=== PATIENT | male | born 1990 | race African-American/Black ===

== ENCOUNTER 2020-10-29 19:00 | Emergency (ER) | payer OTHER ==
[~2020-10-29] VITALS: Ht 182.9 cm; Wt 84.0 kg
[2020-10-29] MEDS ORDERED: GENTAMICIN PER PHARMACY. MC PRN (19:15)
[2020-10-29] MEDS ORDERED: IV NORMAL SALINE 1000ML BAG 1,000 ML IV ONE (19:15)
[2020-10-29] MEDS ORDERED: HYDROmorphone 2 MG/ML VIAL IVP ONE ×2 (19:15→22:00)
[2020-10-29] MEDS ORDERED: HYDROmorphone 2 MG/ML VIAL ONE (19:24)
[2020-10-29 19:29] LABS: BASO # 0.1 x10^3/uL (0.0-0.2); BASO % 1 % (0-3); EOS # 0.3 x10^3/uL (0.0-0.7); EOS % 3 % (0-3); HEMATOCRIT 42.7 % (39.0-53.0); LYMPH # 3.6 x10^3/uL (1.0-4.8); LYMPH % 36 % (24-48); MEAN CORPUSCULAR HEMOGLOBIN 28 pg (25-35); MEAN CORPUSCULAR HGB CONC 33 g/dL (31-37); MEAN CORPUSCULAR VOLUME 86 fL (79-100); MONO # 0.9 x10^3/uL (0.0-1.1); MONO % 9 % (0-9); NEUT # 5.3 x10^3/uL (1.8-7.7); NEUT % 52 % (31-73); PLATELET COUNT 318 x10^3/uL (140-400); RED BLOOD COUNT 4.96 x10^6/uL (4.30-5.70); RED CELL DISTRIBUTION WIDTH 14.6 % (11.5-14.5)
[2020-10-29 19:40] LABS: PROTHROMBIN TIME PATIENT 12.6 SEC (11.7-14.0)
[2020-10-29 19:44] LABS: CALCIUM 9.3 mg/dL (8.5-10.1); CREATININE 1.2 mg/dL (0.7-1.3); GFR 84.9; POTASSIUM 3.5 mmol/L (3.5-5.1)
[2020-10-29] MEDS ORDERED: DEXTROSE 5% IV SCH (20:00)
[2020-10-29] MEDS ORDERED: GENTAMICIN SULFATE IV SCH (20:00)
--- NOTE | 2020-10-29 20:09 | RAD ---
XR FOOT_RIGHT 3 VIEWS Clinical indications: toe amputation Findings: There is amputation of the second digit at the level of the distal metaphysis of the secon d proximal phalanx. There is amputation of the third digit at the level of the distal epiphysis of th e third proximal phalanx. There is a fracture of the distal metaphysis of the third proximal phalanx. There is partial truncation of the tuft of the fourth distal phalanx which may be due to partial amp utation injury here as well. There is a comminuted fracture of the proximal aspect of the first dista l phalanx. No dislocation or lytic process is seen. Multiple radiopaque foreign bodies are seen invol ving the lateral plantar soft tissues of the midfoot. Impression: Amputation injury and fractures as discussed above. Radiopaque foreign bodies. Electronically signed by: Rk Ibarra MD (10/29/2020 8:06 PM) [id number]
--- NOTE | 2020-10-29 20:15 | PHYS DOC ---
Past Medical History Past Medical History: No Pertinent History Past Surgical History: No Surgical History Smoking Status: Never Smoker Alcohol Use: None General Adult EDM: Chief Complaint: TRAUMA ALERT HPI: HPI: 30 yo AA M with no significant pmh presents to the ed with c/o right toe pain/bleeding s/p accidental slip while mowing his lawn just [employer], states his right foot went under the project [employer]. Unknown last tetanus. No known drug allergies. Was not under the influence of any alcohol or drugs. Has sisters in healthcare looking for amputated toes. Had stitches on a finger in the past (unsure what year). No PSH. Did not hit his head or lose consciousness. Has no midline neck pain. Has no prescribed medications, is not on any anticoagulants. Review of Systems: Review of Systems: Constitutional: Denies fever or chills. [] Eyes: Denies change in visual acuity. [] HENT: Denies nasal congestion or sore throat. [] Respiratory: Denies cough or shortness of breath. [] Cardiovascular: Denies chest pain or edema. [] GI: Denies abdominal pain, nausea, vomiting, bloody stools or diarrhea. [] : Denies saddle anesthesia, urine or bowel retention or incontinence Musculoskeletal: Denies back pain or joint pain. [] Integument: Denies rash or blisters Neurologic: Denies headache, neck pain, focal weakness or sensory changes. [] Endocrine: Denies polyuria or polydipsia. [] Lymphatic: Denies swollen glands. [] Psychiatric: Denies depression or anxiety. [] Heart Score: C/O Chest Pain: No Risk Factors: Risk Factors: DM, Current or recent (<one month) smoker, HTN, HLP, family history of CAD, obesity. Risk Scores: Score 0 - 3: 2.5% MACE over next 6 weeks - Discharge Home Score 4 - 6: 20.3% MACE over next 6 weeks - Admit for Clinical Observation Score 7 - 10: 72.7% MACE over next 6 weeks - Early Invasive Strategies Current Medications: Current Medications Medications (Trade) Dose Ordered Sig/Viet Start Time Stop Time Status Last Admin Dose Admin Cefazolin Sodium/ Dextrose 50 ml @ 100 mls/hr 1X ONCE 10/29/20 19:15 10/29/20 19:44 DC 10/29/20 19:38 100 MLS/HR Gentamicin Sulfate 420 mg/ Dextrose 110.5 ml @ 110.5 mls/ hr Q24H 10/29/20 20:00 Gentamicin Sulfate 1 each PRN DAILY PRN 10/29/20 19:15 Hydromorphone HCl (Dilaudid) 2 mg STK-MED ONCE 10/29/20 19:24 10/29/20 19:24 DC Sodium Chloride 1,000 ml @ 1,000 mls/hr 1X ONCE 10/29/20 19:15 10/29/20 20:14 10/29/20 19:26 1,000 MLS/HR Allergies: Allergies: Allergies Coded Allergies Type Severity Reaction Last Updated Verified No Known Drug Allergies 10/29/20 No Physical Exam: PE: Constitutional: Well developed, well nourished, no acute distress, non-toxic appearance. HENT: Normocephalic, atraumatic, no midline neck pain Eyes: PERRLA, EOMI, conjunctiva normal, no discharge. Neck: Normal range of motion, supple, Cardiovascular: S1/2 present, regular rhythm Lungs & Thorax: Speaking in full sentences, bilateral equal chest rise, no tachypnea or increased work of breathing Abdomen: soft, no tenderness, Skin: Warm, dry, Back: No midline tenderness, no CVA tenderness. [] Extremities: No tenderness, no cyanosis, cap refill of left foot less than 1 second, large laceration (50%?) over dorsal aspect of right toe, distal phalanx amputations over 2nd/3rd/4th right toes approximately 40%, 30%, 20% respectively, no pulsatile bleeding, no ankle/knee/hip pain, dp/pt intact Neurologic: Alert and oriented X 3, normal motor function, normal sensory function, no focal deficits noted. [] Psychologic: Affect normal, judgement normal, mood normal. [] Nexus C-spine criteria are negative: There is no post midline tenderness, the patient is not intoxicated, there is a normal level of alertness, there are no focal neurologic deficits and there are no distracting injuries. Current Patient Data: Labs: Laboratory Tests Test 10/29/20 19:11 White Blood Count 10.0 x10^3/uL (4.0-11.0) Red Blood Count 4.96 x10^6/uL (4.30-5.70) Hemoglobin 14.0 g/dL (13.0-17.5) Hematocrit 42.7 % (39.0-53.0) Mean Corpuscular Volume 86 fL (79-100) Mean Corpuscular Hemoglobin 28 pg (25-35) Mean Corpuscular Hemoglobin Concent 33 g/dL (31-37) Red Cell Distribution Width 14.6 % (11.5-14.5) H Platelet Count 318 x10^3/uL (140-400) Neutrophils (%) (Auto) 52 % (31-73) Lymphocytes (%) (Auto) 36 % (24-48) Monocytes (%) (Auto) 9 % (0-9) Eosinophils (%) (Auto) 3 % (0-3) Basophils (%) (Auto) 1 % (0-3) Neutrophils # (Auto) 5.3 x10^3/uL (1.8-7.7) Lymphocytes # (Auto) 3.6 x10^3/uL (1.0-4.8) Monocytes # (Auto) 0.9 x10^3/uL (0.0-1.1) Eosinophils # (Auto) 0.3 x10^3/uL (0.0-0.7) Basophils # (Auto) 0.1 x10^3/uL (0.0-0.2) Prothrombin Time 12.6 SEC (11.7-14.0) Prothrombin Time INR 1.0 (0.8-1.1) Activated Partial Thromboplast Time 24 SEC (24-38) Sodium Level 147 mmol/L (136-145) H Potassium Level 3.5 mmol/L (3.5-5.1) Chloride Level 107 mmol/L (98-107) Carbon Dioxide Level 27 mmol/L (21-32) Anion Gap 13 (6-14) Blood Urea Nitrogen 11 mg/dL (8-26) Creatinine 1.2 mg/dL (0.7-1.3) Estimated GFR (Cockcroft-Gault) 84.9 Glucose Level 90 mg/dL (70-99) Calcium Level 9.3 mg/dL (8.5-10.1) Laboratory Tests 10/29/20 19:11 Laboratory Tests 10/29/20 19:11 Vital Signs: Vital Signs Date Time Temp Pulse Resp B/P (MAP) Pulse Ox O2 Delivery O2 Flow Rate FiO2 10/29/20 19:25 16 99 Room Air 10/29/20 19:00 97.9 77 174/108 (130) 97.9 EKG: EKG: [] Radiology/Procedures: Radiology/Procedures: IMAGING REPORT Signed 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 PHYSICIAN: ANDRE GOLDBERG DO REASON: toe amputation PROCEDURE: FOOT RIGHT 3V XR FOOT_RIGHT 3 VIEWS Clinical indications: toe amputation Findings: There is amputation of the second digit at the level of the distal metaphysis of the second proximal phalanx. There is amputation of the third digit at the level of the distal epiphysis of the third proximal phalanx. There is a fracture of the distal metaphysis of the third proximal phalanx. There is partial truncation of the tuft of the fourth distal phalanx which may be due to partial amputation injury here as well. There is a comminuted fracture of the proximal aspect of the first distal phalanx. No dislocation or lytic process is seen. Multiple radiopaque foreign bodies are seen involving the lateral plantar soft tissues of the midfoot. Impression: Amputation injury and fractures as discussed above. Radiopaque foreign bodies. Electronically signed by: Rk Ibarra MD (10/29/2020 8:06 PM) [id number] DICTATED and SIGNED BY: RK IBARRA MD DATE: 10/29/[id number] 0 Course & Med Decision Making: Course & Med Decision Making Pertinent Labs and Imaging studies reviewed. (See chart for details) Concern for open fractures of first right toe with large laceration and distal phalanx amputations of #2-4 toes. I spoke with Dr. Bundy, general surgery and Dr. Wesley, orthopedic surgery who recommend transfer to trauma center for higher level of care. Patient excepted by trauma surgeon, Dr. Brush. Tetanus was updated and patient was started on Ancef and gentamicin. Rapid Covid negative. Patient stable at time of transfer and agrees with this plan. I have spoken with the patient and/or caregivers. I have explained the patient's condition, diagnosis and treatment plan based on the information available to me at this time. I have answered the patient's and/or caregivers questions and answered any concerns. The patient and/or caregivers have as good an understanding of the patient's diagnosis, condition and treatment plan as can be expected at this point. The patient has been stabilized within the capability of the emergency department. The patient will be transported for further care and management or will be moved to an observation or inpatient service. I have communicated with the staff or medical practitioner taking over this patient's care. Dragon Disclaimer: Dragon Disclaimer: This electronic medical record was generated, in whole or in part, using a voice recognition dictation system. Departure Departure Impression: Primary Impression: Open fracture dislocation of toe of right foot Additional Impressions: Amputation of toe, right, traumatic Need for Tdap vaccination Disposition: 02 SHORT TERM [facility]PITAL ([facility], trauma surgeron Dr. Rober Brush) Condition: STABLE Referrals: NO PCP (PCP) ANDRE GOLDBERG DO Oct 29, 2020 20:15
[2020-10-29] MEDS ORDERED: DIPH,PERTUSS(ACELL),TET VAC/PF 0.5 ML SYRINGE. VAX IM ONE (21:30)
[2020-10-29 21:32] VITALS: BP 144/94
== END 2020-10-29 21:44 | disposition short-term general hospital (02) ==
LOC: ER 19:00
DX: S92.421B Displaced fracture of distal phalanx of right great toe, initial encounter for open fracture (principal); Z20.822 Contact with and (suspected) exposure to COVID-19; W28.XXXA Contact with powered lawn mower, initial encounter; Y93.89 Activity, other specified; Y92.89 Other specified places as the place of occurrence of the external cause; Y99.8 Other external cause status
CPT/HCPCS: 36415; 73630; 80048; 85025; 85610; 85730; 87426; 90471; 90715; 96365; 96367; 96375; 96376; 99285; J0690; J1170; J1580; J7030; J7060; U0003; U0005